=== PATIENT | female | born 1985 | race African-American/Black ===

== ENCOUNTER 2017-10-04 21:13 | Emergency (ER) | payer OTHER ==
[~2017-10-04] VITALS: Ht 162.6 cm; Wt 63.5 kg
[~2017-10-04 21:13] MED LIST: HUMALOG100 UNIT/4 SUBQ; LANTUS SOL100 UNIT/1 SUBQ
[2017-10-04 21:59] LABS: HEMATOCRIT 35.4 % (37.0-47.0); HEMOGLOBIN 11.3 G/DL (12.0-16.0); MEAN CORPUSCULAR VOLUME 79 FL (80-99); PLATELET COUNT 244 K/UL (150-450); RED CELL DISTRIBUTION WIDTH 17.4 % (11.6-14.8); WHITE BLOOD COUNT 19.3 K/UL (4.8-10.8)
[2017-10-04 22:00] LABS: ANION GAP 12 mmol/L (5-15); BLOOD UREA NITROGEN 45 mg/dL (7-18); CALCIUM 9.6 MG/DL (8.5-10.1); CARBON DIOXIDE 25 MMOL/L (21-32); CHLORIDE 95 MMOL/L (98-107); CREATININE 1.6 MG/DL (0.55-1.30); POTASSIUM 3.9 MMOL/L (3.5-5.1); SODIUM 132 MMOL/L (136-145)
[2017-10-04 22:04] LABS: ALANINE AMINOTRANSFERASE 30 U/L (12-78); ALBUMIN 3.9 G/DL (3.4-5.0); ALBUMIN/GLOBULIN RATIO 0.8 (1.0-2.7); ALKALINE PHOSPHATASE 93 U/L (46-116); ASPARTATE AMINO TRANSFERASE 29 U/L (15-37); BILIRUBIN,TOTAL 0.4 MG/DL (0.2-1.0)
[2017-10-04 22:13] LABS: APPEARANCE,URINE SLIGHTLY CLOUDY; BILIRUBIN, URINE NEGATIVE (NEGATIVE); COLOR,URINE PALE YELLOW; GLUCOSE, URINE (UA) 4+ (NEGATIVE); KETONES,URINE 3+ (NEGATIVE); LEUKOCYTE ESTERASE ,URINE 2+ (NEGATIVE); NITRITE,URINE NEGATIVE (NEGATIVE); PH,URINE 6 (4.5-8.0); PROTEIN,URINE 3+ (NEGATIVE); UROBILINOGEN,URINE NORMAL MG/DL (0.0-1.0)
[2017-10-04] MEDS ORDERED: LR 1000ml 1,000 ML IV ONE (22:30)
[2017-10-05] MEDS ORDERED: cefTRIAXone 1 GM in NS 55 ML IVPB ONE ×2
[2017-10-05] MEDS ORDERED: ZOFRAN4 MG ORAL (00:07)
[2017-10-05] MEDS ORDERED: CEPHALEXIN500 MG ORAL (00:07)
--- NOTE | 2017-10-05 00:08 | Emergency Room Report ---
History of Present Illness General Chief Complaint: Vomiting Source: Patient, EMS Present Illness HPI This is a 32-year-old female with history insulin-dependent diabetes. She presents with chief complaint of vomiting abdominal cramping. Onset last night. Unable to keep anything down. This morning she said her blood sugar was high. She gave herself insulin and now in the 300. No fever or chills. Unable to keep anything down. No diarrhea. Pain is crampy in nature. Vomiting is nonbloody nonbilious. Never had this problem before. Allergies: Coded Allergies: No Known Allergies (Unverified , 10/04/17) Patient History Past Medical History: see triage record, old chart reviewed, DM Past Surgical History: none Pertinent Family History: none Social History: Denies: smoking Last Menstrual Period: September Now: No Immunizations: other Reviewed Nursing Documentation: PMH: Agreed; PSxH: Agreed Nursing Documentation-PMH Hx Diabetes: Yes Review of Systems Constitutional: Reports: weakness Eye: Denies: eye pain, blurred vision ENT: Denies: ear pain, nose congestion, throat swelling Respiratory: Denies: cough, shortness of breath Cardiovascular: Denies: chest pain, palpitations Gastrointestinal: Reports: abdominal pain, nausea, vomiting; Denies: diarrhea Musculoskeletal: Denies: back pain, joint pain Skin: Denies: rash Neurological: Denies: headache, numbness Endocrine: Denies: increased thirst, increased urine Hematologic/Lymphatic: Denies: easy bruising All Other Systems: negative except mentioned in HPI Physical Exam Vital Signs Date Time Temp Pulse Resp B/P (MAP) Pulse Ox O2 Delivery O2 Flow Rate FiO2 10/04/17 21:07 98.5 117 16 128/88 95 Room Air 98.4 vitals with tachycardia Sp02 EP Interpretation: reviewed, normal General Appearance: well appearing, no apparent distress, alert Head: normocephalic, atraumatic Eyes: bilateral eye PERRL, bilateral eye EOMI ENT: hearing grossly normal, normal pharynx Neck: full range of motion, supple, no meningismus Respiratory: chest non-tender, lungs clear, normal breath sounds Cardiovascular #1: regular rate, rhythm, no murmur Gastrointestinal: normal bowel sounds, non tender, no mass, no organomegaly, no bruit, non-distended, decreased bowel sounds Musculoskeletal: back normal, gait/station normal, normal range of motion Psychiatric: mood/affect normal Skin: warm/dry Medical Decision Making Diagnostic Impression: Primary Impression: Vomiting Qualified Codes: R11.2 - Nausea with vomiting, unspecified Additional Impressions: UTI (urinary tract infection) Qualified Codes: N30.00 - Acute cystitis without hematuria Dehydration Leukocytosis Qualified Codes: D72.829 - Elevated white blood cell count, unspecified Hyperglycemia due to type 1 diabetes mellitus ER Course Patient presents with vomiting and leukocytosis. Patient most likely has a viral gastritis enteritis. Better now. We'll discharge home with antibiotics and Zofran. No evidence of an acute abdomen. Lab Results Impression labs with leukocytosis CT/MRI/US Diagnostic Results CT/MRI/US Diagnostic Results : Imaging Test Ordered: CT abdomen and pelvis Impression negative per radiologist Last Vital Signs Date Time Temp Pulse Resp B/P (MAP) Pulse Ox O2 Delivery O2 Flow Rate FiO2 10/04/17 21:07 98.5 117 16 128/88 95 Room Air 98.4 Status: improved Disposition: HOME, SELF-CARE Condition: Stable Scripts Cephalexin* (KEFLEX*) 500 Mg Capsule 500 MG ORAL TID, #21 CAP Prov: FINESSE ECHOLS M.D. 10/05/17 Ondansetron (Zofran) 4 Mg Tablet 4 MG ORAL Q6H PRN for Nausea & Vomiting, #10 TAB 0 Refills Prov: FINESSE ECHOLS M.D. 10/05/17 Referrals: [facility],REFERRING (PCP) Patient Instructions: Nausea and Vomiting, Adult Additional Instructions: Follow-up with your DrElle in 2 to 3 days. Advance diet as tolerated. Increase fluid. Return of worse. FINESSE ECHOLS M.D. Oct 05, 2017 00:08
[2017-10-05 00:22] VITALS: BP 128/88
--- NOTE | 2017-10-06 13:34 | Diagnostic Imaging Report ---
Indication: Nausea vomiting x2 days, abdominal pain Technique: Spiral acquisitions obtained through the abdomen and pelvis. No oral contrast utilized, per emergency room physician request No IV contrast utilized, per emergency room physician request.. Multiplanar reconstructions were generated. Total dose length product 497.84 mGycm. CTDIvol(s) 9.74 mGy. Dose reduction achieved using automated exposure control Comparison: None Findings: The appendix is not well visualized but appears grossly unremarkable. No evidence of diverticulosis or diverticulitis. No small bowel distention. There is trace free pelvic fluid. No free intraperitoneal air. There is slight skin thickening of the lower anterior abdominal wall. Lack of IV contrast limits assessment of the solid organs. The liver, gallbladder, bile ducts, pancreas, spleen, adrenals, kidneys are unremarkable. No retroperitoneal or mesenteric mass or adenopathy. The uterus is somewhat prominent. The bladder is equivocally mildly thick-walled, but nondistended. The included lung bases are clear. The bones are unremarkable. Impression: No definite acute abnormality. Apparent bladder wall thickening, most likely artifact of under distention but cystitis not excluded well. Correlate with laboratory findings Prominent uterus, could indicate early fibroid changes Skin thickening of the lower abdominal wall. Correlate with clinical findings Trace free pelvic fluid, presumably physiologic This agrees with the preliminary interpretation provided overnight by [facility]eradiology service. The CT scanner at [facility] is accredited by the [employer] and the scans are performed using protocols designed to limit radiation exposure to as low as reasonably achievable to attain images of sufficient resolution adequate for diagnostic evaluation.
== END 2017-10-05 00:24 | disposition home or self-care (01) ==
LOC: EDBD 21:13 → EMR 21:40
DX: R11.2 Nausea with vomiting, unspecified (principal); N39.0 Urinary tract infection, site not specified; E86.0 Dehydration; D72.829 Elevated white blood cell count, unspecified; E10.65 Type 1 diabetes mellitus with hyperglycemia
CPT/HCPCS: 36415; 74176; 80053; 81003; 81025; 83690; 85007; 85025; 96360; 96361; 96374; 99284; J0696; J2405; J7120